=== PATIENT | male | born 1985 | race Caucasian/White ===

== ENCOUNTER 2018-10-09 01:45 | Emergency (ER) | payer OTHER ==
--- NOTE | 2018-10-09 02:41 | EDPHY ---
H & P Stated Complaint: Rash on arm, Lump on back of head, noticed it tonight Time Seen by Provider: 10/09/18 02:41 HPI/ROS: HPI CHIEF COMPLAINT: Lump on scalp HISTORY OF PRESENT ILLNESS: Patient is a 33-year-old male, arrives to the emergency room with a lump that he noticed tonight on the left posterior occiput. No trauma. He does wear a hat regularly. He works as electrician constructor supervisor. His main concerned about this lump. It is not significantly tender however it is raised, left occiput small area 2 cm x 2 cm, red. Warm. Clinically on exam it appears to be a small scalp infection. No fluctuance. Additionally, separate issue, the patient complains of a rash that itches every once in a while. Is not currently present but he states over the last 24 hr it happened to him yesterday. Very itchy rash. He is unsure what precipitated. He does not have any allergies. Does have a family history of seafood allergies and he is concerned that maybe he has been reactive foods. Here in the emergency room he has no complaints. Denies trouble breathing, trouble swallowing, throat pain. His main concern was the lump on the back of the left occiput. No fever. Denies any other areas of swelling. Past Medical History: No significant medical history Past Surgical History:denies Social History: denies. Resides in [place]. Family History:denies ROS REVIEW OF SYSTEMS: 10 Systems were reviewed and negative with the exception of the elements mentioned in the history of present illness. Exam Constitutional triage nursing summary reviewed, vital signs reviewed, awake/ alert. Eyes normal conjunctivae and sclera, EOMI, PERRLA. HENT head/neck: Scalp: left occiput, area 2cm x 2cm, redness, raised, no significant fluctuance. Mildly indurated. No significant lymphadenopathy on the neck or head. normal inspection, atraumatic, moist mucus membranes, no epistaxis, neck supple/ no meningismus, no raccoon eyes. Respiratory clear to auscultation bilaterally, normal breath sounds, no respiratory distress, no wheezing. Cardiovascular rate normal, regular rhythm, no murmur, no edema, distal pulses normal. Gastrointestinal soft, non-tender, no rebound, no guarding, normal bowel sounds, no distension, no pulsatile mass. Genitourinary no CVA tenderness. Musculoskeletal no midline vertebral tenderness, full range of motion, no calf swelling, no tenderness of extremities, no meningismus, good pulses, neurovascularly intact. Skin no significant rash. pink, warm, & dry, no rash, skin atraumatic. Neurologic awake, alert and oriented x 3, AAOx3, moves all 4 extremities equally, motor intact, sensory intact, CN II-XII intact, normal cerebellar, normal vision, normal speech. Psychiatric normal mood/affect. Heme/Lymph/Immune no lymphadenopathy. Differential Diagnosis: Includes but is not limited to in a particular order scalp cellulitis, scalp abscess, scalp lymphadenopathy, scalp to Medical Decision Making: Plan for this patient recommend warm compresses 2 to 3 times a day. Recommend Keflex antibiotics. If the area becomes more painful , swollen red or fever return emergency room. He understands this. He is visiting from [place] due to go to back to [place] tomorrow. I do recommend he follows up with his primary care doctor. If the scalp lesion continues to be present recommend he follows up. Keflex antibiotic and warm compresses Also about his rash I do recommend that he keeps a close log of his rash. Keeps a pattern of when he develops it. Currently no signs of allergic reaction on exam. Source: Patient - Personal History Current Tetanus Diphtheria and Acellular Pertussis (TDAP): Yes - Medical/Surgical History Hx Asthma: No Hx Chronic Respiratory Disease: No Hx Diabetes: No Hx Cardiac Disease: No Hx Renal Disease: No Hx Cirrhosis: No Hx Alcoholism: No Hx HIV/AIDS: No Hx Splenectomy or Spleen Trauma: No Other PMH: Denies - Social History Smoking Status: Never smoked Constitutional: Initial Vital Signs Temperature (C) 36.8 C 10/09/18 01:47 Heart Rate 105 H 10/09/18 01:47 Respiratory Rate 16 10/09/18 01:47 Blood Pressure 174/97 H 10/09/18 01:47 O2 Sat (%) 95 10/09/18 01:47 O2 Delivery Mode Room Air Allergies/Adverse Reactions: No Known Allergies Allergy (Verified 10/09/18 01:47) Home Medications: Medication Instructions Recorded Miscellaneous Medical Supply [NO 12/19/12 HOME MEDS] predniSONE [Prednisone] 20 mg PO DAILY #14 tablet 12/19/12 Cephalexin [Keflex] 500 mg PO Q6H #28 cap 10/09/18 Departure - Departure Disposition: Home, Routine, Self-Care Clinical Impression: Infection of scalp Condition: Good Instructions: Folliculitis (ED), Cellulitis (ED) Additional Instructions: 1. Warm compresses 2 to 3 times a day. 2. Antibiotics as prescribed 3. Return to the emergency room if worsening swelling, pain, fever, rash, not doing well 4. Follow up with her primary care doctor. 5. If the area on your scalp persist or gets bigger follow up with your doctor. Referrals: NONE *PRIMARY CARE P,. [Primary Care Provider] - As per Instructions [facility],. [Clinic] - As per Instructions Prescriptions: Cephalexin [Keflex] 500 mg PO Q6H #28 cap
[2018-10-09] MEDS ORDERED: CEPHALEXIN 500MG PREPACK#4 BTL TAKEHOME ONE (03:19)
[2018-10-09] MEDS ORDERED: CEPHALEXIN 500 MG CAP PO ONE (03:19)
[2018-10-09 03:36] VITALS: BP 114/77
== END 2018-10-09 03:35 | disposition home or self-care (01) ==
DX: L08.9 Local infection of the skin and subcutaneous tissue, unspecified (principal); R22.0 Localized swelling, mass and lump, head; R21 Rash and other nonspecific skin eruption